=== PATIENT | male | born 1930 | race Caucasian/White ===

== ENCOUNTER 2016-10-01 20:59 | Emergency (ER) | payer MEDICARE ==
[2016-10-01 21:34] LABS: Hematocrit 39.9 % (42.0-52.0); Hemoglobin 13.5 gm/dL (13.5-18.0); Mean Cell Volume 91.7 fl (78-100); Mean Corpuscular Hgb Conc 33.8 g/dl (32-36); Mean Platelet Volume 9.5 fl (6.0-9.5); Neutrophil % 69.9 % (42-75.0); Platelet Count 485 K/mm3 (150-450); Red Blood Count 4.35 M/mm3 (4.7-6.0); Red Cell Distribution Width 13.9 % (11.5-14.0); White Blood Count 8.6 K/mm3 (4.0-10.5)
--- NOTE | 2016-10-01 21:42 | ERNOTE ---
Chest Pain/Cardiac HPI Chief Complaint: Chest Pain Time Seen by Provider: 10/01/16 21:29 Source: patient Exam Limitations: no limitations Immunizations: IMMUNIZATION HX Immunizations Up to Date Yes History of Influenza Vaccine No Hx Pneumococcal Vaccination Yes Allergies/Adverse Reactions: Allergies No Known Allergies Allergy (Verified 10/01/16 21:19) Home Medications: HOME MEDICATIONS Lisinopril [Zestril] 5 mg PO BID 06/03/16 [Last Taken Unknown] Metformin HCl [Glumetza] 500 mg PO BID 06/03/16 [Last Taken Unknown] Pravastatin Sodium [Pravachol] 20 mg PO HS 06/03/16 [Last Taken Unknown] Sucralfate [Carafate Suspension] 1 g PO AC #20 gm 10/02/16 [Last Taken Unknown] Narrative: 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 fixing 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 and began to have squeezing chest pain that has worsened Timing: constant, getting worse Severity/Quality: moderate, other - squeezing Location: central Chest Pain Radiation: no radiation Activities at Onset: none Associated Symptoms: Present: denies symptoms Review of Systems - Review of Systems Constitutional: Present: no symptoms reported EYE: Present: no symptoms reported ENT: Present: no symptoms reported Respiratory: Absent: shortness of breath Cardiology: Present: See HPI Gastrointestinal/Abdominal: Absent: nausea, vomiting, abdominal pain Genitourinary: Present: no symptoms reported Musculoskeletal: Present: back pain - lower back for the past 2-3 days but resolved as his chest pain escalated Skin: Present: no symptoms reported Neurological: Present: no symptoms reported Endocrine: Present: no symptoms reported Hematologic/Lymphatic: Present: no symptoms reported - Patient's Past Medical History Patient History - Medical: Diabetes Type 2 Patient History - Cardiac/Respiratory: No pertinent hx Patient History - Cancer: No Hx of Cancer Patient History - Surgical Procedures: Cataracts, Other Patient History - Other: None - Social History Living Situations: home Psych History: No pertinent hx Does anyone smoke in the home?: No Alcohol Use: other Drug Use: none - Immunizations Immunizations Up to Date: Yes Hx Pneumococcal Vaccination: Yes History of Influenza Vaccine: No Physical Exam - Physical Exam General Appearance: Present: wd/wn, alert, no apparent distress Eye Exam: Normal inspection: bilateral, PERRL: bilateral Ears, Nose, Throat: Present: normal ENT inspection Neck: Present: normal inspection, nontender Respiratory: Present: no respiratory distress, no accessory muscle use, chest nontender, lungs clear Cardiovascular/Chest: Present: regular rate, rhythm, systolic murmur - 4/6 harsh Gastrointestinal/Abdominal: Present: normal bowel sounds, nontender, nondistended, soft Back Exam: Present: normal inspection Extremity Exam: Present: normal inspection, normal range of motion, no edema Neurological Exam: Present: alert, oriented, normal mood/affect, no motor/ sensory deficits Skin Exam: Present: normal color, warm/dry Lymphatic Exam: Present: no adenopathy ED Progress - Results and Orders Patient's Lab Results:: I have reviewed the patient's lab results. Results and Orders: Laboratory Tests 10/01/16 10/01/16 10/01/16 21:30 21:30 21:30 WBC 8.6 Hgb 13.5 Hct 39.9 L Plt Count 485 H PT 12.2 H INR (Anticoag Therapy) 1.17 H PTT (Gulf) 28.2 Sodium 140 Potassium 3.8 Chloride 101 Carbon Dioxide 32.9 H Anion Gap 9.9 BUN 23 Creatinine 1.27 Est GFR (Non-Af Amer) 57 L BUN/Creatinine Ratio 18.1 Random Glucose 339 H Calcium 8.8 Calcium Adj for Albumin 9.0 Total Bilirubin 0.8 AST 17 ALT 26 Alkaline Phosphatase 129 Troponin I 0.081 Total Protein 7.1 Albumin 3.4 10/01/16 23:51 WBC Hgb Hct Plt Count PT INR (Anticoag Therapy) PTT (Gulf) Sodium Potassium Chloride Carbon Dioxide Anion Gap BUN Creatinine Est GFR (Non-Af Amer) BUN/Creatinine Ratio Random Glucose Calcium Calcium Adj for Albumin Total Bilirubin AST ALT Alkaline Phosphatase Troponin I 0.082 Total Protein Albumin - Vital Signs Vital Signs: Vital Signs 10/01/16 21:15 Temperature 37.1 C Pulse Rate 103 H Respiratory 16 Rate Blood Pressure 169/118 O2 Sat by Pulse 97 Oximetry - Progress/Reassessment Chief Complaint: Chest Pain Departure - Departure Clinical Impression: Esophageal spasm Disposition: Home Follow Up Needed Condition: Good Instructions: Esophageal Spasm Additional Instructions: use the carafate prior to each meal for 5-7 days then see how you feel without it. Do not take any medications within 1 hour after the carafate as they may not absorb well Referrals: Alison Mckeon MD [Primary Care Provider] - Prescriptions: Sucralfate [Carafate Suspension] 1 g PO AC #20 gm
[2016-10-01 21:46] LABS: Prothrombin Time (Patient) 12.2 Seconds (9.4-11.4)
[2016-10-01 21:47] LABS: INR 1.17 INR (0.90-1.10); Partial Thrombolplastin Time 28.2 Seconds (24-32)
[2016-10-01] MEDS: NITROGLYCERIN 0.4 MG/TAB BTL SL PRN ×2 (21:50→21:58)
[2016-10-01 21:52] LABS: Albumin * 3.4 gm/dl (3.4-5.0); Anion Gap 9.9 mmol/L (6.8-13.8); BUN/Creatinine Ratio 18.1 (9.0-21.6); Bilirubin, Total 0.8 mg/dL (0.0-1.1); Calcium * 8.8 mg/dL (7.9-10.9); Carbon Dioxide 32.9 mmol/L (24-32.6); Potassium 3.8 mmol/L (3.4-4.6); Total Protein 7.1 gm/dL (6.2-8.2); Troponin I 0.081 ng/ml (0.00-0.10)
--- OUTSIDE RECORDS SUMMARY | 2016-10-01 22:15 | XMS REPORT | Continuity of Care Document ---
:1930 Author Organization [facility] ([facility]) Address [address] [place] [address] Phone [phone] Care Team Providers Name Role Phone Alison Mckeon Primary Care Provider [phone] Source Comments This disclosure is being made pursuant to the Care Everywhere program, applicable federal and state laws, and may not contain all informaitonavailable regarding this patient.[facility] ([facility]) Active Allergies and Adverse Reactions No Known Allergies Current Medications Prescription Sig. Disp. Refills Start Date End Date Status cholecalciferol (VITAMIN Take 2,000 Units Active D3) 2,000 unit capsule by mouth daily. pravastatin (PRAVACHOL) 20 Take 20 mg by Active mg tablet mouth every evening. furosemide 20 mg tablet Take 40 mg by 07/21/2016 Active mouth daily. pantoprazole 40 mg EC 40 mg daily. 07/21/2016 Active tablet meclizine 25 mg tablet Take 25 mg by Active mouth 3 times daily as needed. spironolactone 100 mg Take 200 mg by Active tablet mouth daily. Active Problems Problem Noted Date Gastric ulcer with hemorrhage 06/07/2016 Overview: 06/05/2016 3x4 cm ulcer with visible vessel which was cauterized. The ulcer is large raising concern of having a malignant potential. (Wade classification IIA) Required 2 U PRBC at OSH> Esophageal varices determined by endoscopy 06/07/2016 Overview: 06/05/2016 EGD with Grade 3 esophageal varices. Not banded. Had coffee ground emesis prior to this admission. Acute blood loss anemia 06/06/2016 Benign hypertension 06/04/2016 Cirrhosis of liver with ascites 06/04/2016 Gastrointestinal bleed 06/04/2016 Type II or unspecified type diabetes mellitus without mention of 06/04/2016 complication, not stated as uncontrolled Systolic murmur 06/04/2016 Resolved Problems Problem Noted Date Resolved Date Gastrointestinal hemorrhage 06/06/2016 06/07/2016 Most Recent Encounters Date Type Specialty Providers Description 09/01/2016 Nurse Triage Med GI/Hepatology Vianca Do, Chief Comp: Post -op RN Follow-up Call 08/29/2016 Hospital Encounter Med GI/Hepatology [place], Dx: Cirrhosis of MD [place] liver with ascites, unspecified hepatic cirrhosis type 07/25/2016 Office Visit Med GI/Hepatology Preet Camargo MD Dx: Cirrhosis of liver with ascites, unspecified hepatic cirrhosis type Social History Tobacco Use Types Packs/Day Years Used Date Former Smoker Cigarettes 4 20 Quit: 07/13/1975 Smokeless Tobacco: Former User Comments:2 years of smoking in [place] Alcohol Use Drinks/Week oz/Week Comments No 0 Standard drinks or equivalent 0.0 Quit 1986, never heavy drinker Last Filed Vital Signs Vital Sign Reading Time Taken Blood Pressure 132/64 08/29/2016 9:56 AM 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 Pulse 71 07/25/2016 11:12 AM 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 Temperature 36.4 C (97.5 F) 08/29/2016 8:29 AM 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 Respiratory Rate 16 08/29/2016 9:56 AM 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 Height 1.6 m (5' 3") 06/06/2016 5:16 PM 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 Weight 67.45 kg (148 lb 11.2 oz) 07/25/2016 11:12 AM 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 Body Mass Index 26.35 07/25/2016 11:12 AM 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 Oxygen Saturation 100% 08/29/2016 9:56 AM 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 Plan of Care Date Type Specialty Providers Description 10/30/2016 Appointment Med GI/Hepatology Preet Camargo MD Chief Comp: Patient [address] [place] [address] Visit [phone] (Fax) 02/06/2017 Appointment Med GI/Hepatology Preet Camargo MD Chief Comp: Patient [address] [place] [address] Visit [phone] (Fax) Health Maintenance Due Date Last Done Comments Hepatitis B Vaccine (1 of 3 - Primary Series) 1930 Tdap Vaccine 1941 DIABETIC: Cholesterol 1948 Diabetic: Hdl 1948 DIABETIC: Hemoglobin A1C 1948 Diabetic: Ldl 1948 DIABETIC: Microalbumin 1948 DIABETIC: Triglycerides 1948 Td Vaccine 1948 Zoster Vaccine 1990 Pneumococcal Vaccine (1 of 2 - PCV13) 1995 Influenza Vaccine: Seasonal (#1) 02/11/2016 DIABETIC: Foot Exam 06/04/2016 DIABETIC: Retinal Eye Exam 06/04/2016 Results from Last 3 Months ENDOSCOPY UPPER (08/29/2016 9:31 AM) Bryant Yancey MD 08/29/20169:31 AM ENDOSCOPY UPPER GI/Hepatology Brief Procedure Note Date: 08/29/2016 Procedure: EGD with esophageal variceal band ligation (EVBL). Pre-procedure Diagnosis: Follow up for healing of gastric incisura ulcer.Band large esophageal varices. Proceduralist: [place]. Anesthesia: Versed 3 mg IV, fentanyl 37.5 mcg IV. The procedure sedation was given under my direction from 08/29/16 9:07 AM to 179:24 AM. Biopsy: None. Blood Loss: None. Post-procedure Diagnosis: 1.Gastric incisura ulcer nearly completely healed. 2.Grade 2-3 esophageal varices - banded (6). 3.Moderate sized gastric cardia varices, no stigmata. 4.Moderately severe portal hypertensive gastropathy. Post-procedure Plan: 1.Repeat EGD with EVBL in 4-6 weeks. 2.Continue PPI treatment. 3.Follow up in [facility] with Dr. Camargo. Bryant Onofre MD BLOOD GLUCOSE, BEDSIDE (08/29/2016 8:41 AM) Component Value Range Glucose, Accu-Chek 139(H) 65-99 mg/dL Specimen Blood, capillary PT/INR (PROTHROMBIN TIME/INR) VENOUS (07/25/2016 12:16 PM) Component Value Range PT (Prothrombin Time) 13(H) 9-12 secs INR 1.3 <4.0 Specimen Blood BASIC METABOLIC PANEL W/ CALCIUM (CHEM 8) (07/25/2016 12:16 PM) Component Value Range Sodium 145 135-145 mEq/L Potassium 3.9 3.5-5.0 mEq/L Chloride 104 95-107 mEq/L CO2 30(H) 22-29 mEq/L Anion Gap 11 8-18 mEq/L BUN 26(H) 10-20 mg/dL Creatinine 0.9Comment: 0.6-1.2 mg/dL Creatinine switched to enzymatic method on 11/19/2010.GFR equation switched to IDMS-traceable MDRD equation on 11/19/2010. Calculated GFR values are not valid in clinical settings where serum creatinine is changing. Glucose 109(H)Comment: 65-99 mg/dL The Expert Committee on the Diagnosis and Classification of Diabetes has defined impaired fasting glucose as greater than or equal to 100 mg/dL but less than 126 mg/dL.(Diabetes Care 28 (Suppl 1)S41,2005) Calcium 8.7 8.5-10.5 mg/dL Calculated GFR 80 >60 mL/min/1.73 m2 Specimen Blood ALPHA-FETOPROTEIN (07/25/2016 12:16 PM) Component Value Range AFP 2.3 0.0-9.0 ng/mL Specimen Blood HEPATIC FUNCTION PANEL (07/25/2016 12:16 PM) Component Value Range Albumin 3.2(L) 3.4-4.8 g/dL ALP 131(H) 40-129 U/L Bilirubin Total 0.5 <=1.2 mg/dL Bilirubin, Direct 0.2 0.0-0.2 mg/dL AST 24Comment: 0-40 U/L Adult reference ranges updated on 06/07/13 at 830am ALT 20Comment: 0-41 U/L The upper limit of normal for alanine aminotransferase (ALT) reference ranges for adults is controversial with some authorities recommending limit as low as 30 U/L for males and 19 U/L for females. Th ere is increased incidence of subclinical liver disease (e.g., early steatohepatitis) in patients with ALT values in the range of 31-41 U/L for males and 20-33 U/L for females. ALT values should alway s be interpreted in conjunction with clinical history, physical examination findings, and, if applicable, data from other diagnostic tests. Total Protein 6.4 6.0-8.0 g/dL Specimen Blood
[2016-10-02] MEDS ORDERED: SUCRALFATE 1 G/10 ML UDC PO ONE (00:25)
[2016-10-02 00:37] VITALS: BP 118/71
== END 2016-10-02 00:36 | disposition home or self-care (01) ==
LOC: ER 20:59
DX: K22.4 Dyskinesia of esophagus (principal)

== ENCOUNTER 2016-12-17 15:48 | Emergency (ER) | payer MEDICARE ==
[2016-12-17 16:19] LABS: Hematocrit 40.1 % (42.0-52.0); Hemoglobin 14.1 gm/dL (13.5-18.0); Mean Cell Volume 89.9 fl (78-100); Mean Corpuscular Hemoglobin 31.6 pg (27-31); Mean Corpuscular Hgb Conc 35.2 g/dl (32-36); Neutrophil # 3.6 K/mm3 (1.3-6.0); Neutrophil % 64.9 % (42-75.0); Platelet Count 503 K/mm3 (150-450); Red Blood Count 4.46 M/mm3 (4.7-6.0); Red Cell Distribution Width 12.4 % (11.5-14.0); White Blood Count 5.6 K/mm3 (4.0-10.5)
--- OUTSIDE RECORDS SUMMARY | 2016-12-17 16:26 | XMS REPORT | Continuity of Care Document ---
:1930 Author Organization [facility] ([facility]) Address [address] [place] [address] Phone [phone] Care Team Providers Name Role Phone Alison Mckeon Primary Care Provider [phone] Source Comments This disclosure is being made pursuant to the Care Everywhere program, applicable federal and state laws, and may not contain all informaitonavailable regarding this patient.[facility] ([facility]) Active Allergies and Adverse Reactions No Known [...] Recent Encounters Date Type Specialty Providers Description 12/01/2016 Orders/Notes Med GI/Hepatology Marely Barron Dx: Esophageal and Abida RN gastric varices (Primary Dx) 11/27/2016 Hospital Encounter Med GI/Hepatology Preet Camargo MD Dx: Gastric ulcer with hemorrhage, unspecified chronicity (Primary Dx) 11/27/2016 Orders Only Pathology Elvi Anne Abida Dx: Gastric ulcer with hemorrhage, unspecified chronicity 10/30/2016 Hospital Encounter Med GI/Hepatology Preet Camargo MD Chief Comp: Patient Reported Reason For Visit 10/02/2016 Telephone Med GI/Hepatology Tanja Tam RN Chief Comp: Patient Concern Social History Tobacco Use Types Packs/Day Years Used Date Former Smoker Cigarettes 4 20 Quit: 07/13/1975 Smokeless Tobacco: Former User Comments:2 years of smoking in [employer]. 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 Temperature 36.4 C (97.5 F) 11/27/2016 11:52 AM CDT Respiratory Rate 18 11/27/2016 12:10 PM CDT Height 1.6 m (5' 3") 06/06/2016 5:16 PM INFORMATION STRATEGIST Weight 67.45 kg (148 lb 11.2 oz) 07/25/2016 11:12 AM INFORMATION STRATEGIST Body Mass Index 26.35 07/25/2016 11:12 AM INFORMATION STRATEGIST Oxygen Saturation 96% 11/27/2016 12:10 PM CDT Plan of Care Date Type Specialty Providers Description 01/01/2017 Hospital Encounter Med GI/Hepatology Itzel Bermeo MD Chief Comp: Patient [address] [place] Visit [id number] [phone] (Fax) 02/06/2017 Appointment Med GI/Hepatology Preet Camargo MD Chief Comp: Patient [address] Rep[place] [id number] [phone] (Fax) Health Maintenance Due Date Last Done Comments Hepatitis B Vaccine (1 of 3 - Primary Series) 1930 Tdap Vaccine 1941 DIABETIC: Cholesterol 1948 Diabetic: Hdl 1948 DIABETIC: Hemoglobin A1C 1948 Diabetic: Ldl 1948 DIABETIC: Microalbumin 1948 DIABETIC: Triglycerides 1948 Td Vaccine 1948 Zoster Vaccine 1990 Pneumococcal Vaccine (1 of 2 - PCV13) 1995 DIABETIC: Foot Exam 06/04/2016 DIABETIC: Retinal Eye Exam 06/04/2016 Influenza Vaccine: Seasonal (Season Ended) 2017 Results from Last 3 Months ENDOSCOPY UPPER (12/12/2016 5:26 PM) Preet Reina MD 12/12/20165:26 PM ENDOSCOPY UPPER EsophagoGastroDuodenoscopy Procedure Note Procedure Date: 11/27/2016 Procedure: EGD Indications: Surveillance of esophageal varices, gastric ulcer Consent: The risks, benefits, indications, potential complications, and alternatives were explained to the patient and informed consent obtained.Opportunity for questions was provided. Attending: Rosa Camargo MD Referring: Alison Mckeon MD History of Present Illness: 86-yo man presented with GI bleed in 05/28; found to have ulcer on incisura and large, nonbleeding varices.Varices banded in 08/29.Here for F/U EGD. Current Outpatient Medications: Current Outpatient Prescriptions Medication Sig Dispense Refill cholecalciferol (VITAMIN D3) 2,000 unit capsule Take 2,000 Units by mouth daily. furosemide 20 mg tablet Take 40 mg by mouth daily. meclizine 25 mg tablet Take 25 mg by mouth 3 times daily as needed. pantoprazole 40 mg EC tablet 40 mg daily. pravastatin (PRAVACHOL) 20 mg tablet Take 20 mg by mouth every evening. spironolactone 100 mg tablet Take 200 mg by mouth daily. Current Facility-Administered Medications Medication Dose Route Frequency Provider Last Rate Last Dose fentanyl (pf) (SUBLIMAZE) 50 mcg/mL injection 12.5-50 mcg 12.5-50 mcg Intravenous PRN Ayana Red MD lidocaine 4% solution 3 mL3 mL Topical PRN Ayana Red MD midazolam (PF) (VERSED) 1 mg/mL injection 0.5-5 mg0.5-5 mg Intravenous PRN Ayana Red MD 2 mg at 11/27/16 1143 skin refrigerant (PAIN EASE) spray 1 Spray1 Ucon Topical Once Julia Robison MD skin refrigerant (PAIN EASE) spray 1 Spray1 Ucon Topical Once Ayana Red MD sodium chloride 0.9% continuous infusion Intravenous Continuous Julia Robison MD 100 mL/hr at 11/27/16 1039 450 mL at 11/27/16 1039 sodium chloride 0.9% continuous infusion Intravenous Continuous Ayana Red MD Allergies: Review of patient's allergies indicates no known allergies. Physical Exam: BP 145/62 mmHg | Temp(Src) 36.3 C (97.3 F) (Tympanic) | Resp 16 | SpO2 100% Preoperative Anesthesia Assessment: Based on the pre-procedure assessment, including review of the patient's medical history, medications, allergies, and review of systems, the patient was deemed to be an appropriate candidate for moderate sedation. Procedural Medications: topical; Versed 2 mg, Fentanyl 25 mcg IV The procedure sedation was given under my direction from 11/27/16 11:29 AM to 11/27/16 11:40 AM. Description of Procedure: The patient was placed in the left lateral decubitus position. The patient was monitored continuously with pulse oximetry, blood pressure monitoring, and direct observation.The gastroscope was inserted into the mouth and advanced under direct vision to the second part of the duodenum.A careful inspection was made as the gastroscope was withdrawn, including a retroflexed view of the proximal stomach; findings and interventions are described below.Appropriate photo documentation obtained but photos did not print.Biopsy/Specimens were collected from the incisura. The patienttolerated the procedure well and there were no complications immediately evident.Estimated blood loss was negligible. Findings: 1.Short remnant varices in the distal esophagus with non-obstructing scar from prior banding. 2.Isolated gastric varices without stigmata of impending bleeding. 3.No visible ulcer on incisura but there was an area of abnormal mucosa that was biopsied. 4.Gastric and duodenal mucosal edema. Impression: As above. Plan: 1. Await pathology 2. Will discuss possible gluing of GV with patient and his family and refer if they are in agreement 3.Otherwise will repeat EGD in 6-12 months Preet Camargo MD Anatomic Pathology Results:pending SURGICAL PATHOLOGY EXAM (11/27/2016 3:19 PM) Component Value Range Case Report Surgical Pathology Case: [id number] Authorizing Provider:Preet Camargo MDCollected: 11/27/2016 03:19 PM Ordering Location: [facility] Received: 11/28/2016 08:22 AM Diseases: Procedure Unit Pathologist: Helena Rodriguez MD Specimen:Stomach, Specify, INCISURA Diagnosis A. Stomach, incisura, biopsy: Superficial fragments of hyperplastic foveolar epithelium with reactive changes. Negative for dysplasia or malignancy. I have personally reviewed this case and edited the report as necessary. Clinical Information 86-yo man with cirrhosis and prior h/o gastric ulcer on incisure. EGD today shows healed ulcer with abnormal-appearing mucosa. R/O malignancy. Gross Description A.Received in formalin, in a container labeled Sid Armstrong, [facility] number, and "INCISURA", is a 0.3 x 0.3 x 0.2 cm thakur-pink soft tissue fragment. Submitted entirely in A1. BNS/tkr Microscopic Description Microscopic examination has been performed and supports the diagnosis. MED/SB Specimen Tissue - Stomach, Specify BLOOD GLUCOSE, BEDSIDE (11/27/2016 10:34 AM) Component Value Range Glucose, Accu-Chek 150(H) 65-99 mg/dL Specimen Blood, capillary
[2016-12-17 16:33] LABS: Urine Bilirubin Negative (NEGATIVE); Urine Blood Negative /ul (NEGATIVE); Urine Ketone Negative (NEGATIVE); Urine Nitrite Negative (NEGATIVE); Urine Protein Negative (NEGATIVE); Urine Specific Gravity <=1.005 SP.GR. (1.005-1.030); Urine Urobilinogen Normal (NORMAL); Urine pH 6.5 pH (5.0-7.0)
[2016-12-17 16:34] LABS: Albumin * 3.4 gm/dl (3.4-5.0); Anion Gap 8.5 mmol/L (6.8-13.8); BUN/Creatinine Ratio 18.1 (9.0-21.6); Bilirubin, Total 0.5 mg/dL (0.0-1.1); Ca. Corrected For Albumin 9.4 mg/dL (8.4-10.2); Calcium * 9.2 mg/dL (7.9-10.9); Carbon Dioxide 31.5 mmol/L (24-32.6); Total Protein 7.1 gm/dL (6.2-8.2)
--- NOTE | 2016-12-17 16:36 | ERNOTE ---
Medical Problem HPI - General Chief Complaint: Diabetes Related Problem Time Seen by Provider: 12/17/16 16:13 Source: patient, family Exam Limitations: no limitations - Immun/Allergies/Home Medications Immunizations: IMMUNIZATION HX Immunizations Up to Date Yes History of Influenza Vaccine No Hx Pneumococcal Vaccination No Allergies/Adverse Reactions: Allergies No Known Allergies Allergy (Verified 12/17/16 15:58) Home Medications: HOME MEDICATIONS Lisinopril [Zestril] 5 mg PO BID 06/03/16 [Last Taken Unknown] Pravastatin Sodium [Pravachol] 20 mg PO HS 06/03/16 [Last Taken Unknown] metFORMIN HCL [Glumetza] 500 mg PO BID 06/03/16 [Last Taken Unknown] Sucralfate [Carafate Suspension] 1 g PO AC #20 gm 10/02/16 [Last Taken Unknown] Spironolactone [Aldactone] 25 mg PO DAILY 12/17/16 [Last Taken Unknown] - History of Present History Narrative: Patient is here for elevated glucose. He has no symptoms and feels well. He has been checking his fasting glucose daily and they are usually in the 120- 140 range. Over the last week his fasting glucose has been over 200, 254 today. He had biscuits and gravy for breakfast and watermelon before he went to have his blood work done for his office visit with Dr Mckeon tomorrow. The office called him and told him to go to the ER as his glucose was high. Review of Systems - Review of Systems Constitutional: Absent: recent illness, fever EYE: Absent: vision changes ENT: Absent: nose congestion, sore throat Respiratory: Absent: shortness of breath, cough Cardiology: Absent: chest pain Gastrointestinal/Abdominal: Absent: nausea, vomiting, diarrhea, constipation, abdominal pain Genitourinary: Present: other - no increased output. Absent: frequency Musculoskeletal: Absent: neck pain Neurological: Absent: headache Endocrine: Absent: increased thirst - Patient's Past Medical History Patient History - Medical: Diabetes Type 2 Patient History - Cardiac/Respiratory: No pertinent hx Patient History - Cancer: No Hx of Cancer Patient History - Surgical Procedures: Cataracts, Other Patient History - Other: None - Social History Living Situations: alone Abuse History: No History of abuse Psych History: No pertinent hx Does anyone smoke in the home?: No Smoking Status: Former smoker Have you smoked in the past 12 months: No Alcohol Use: none Drug Use: none - Immunizations Immunizations Up to Date: Yes Hx Pneumococcal Vaccination: No History of Influenza Vaccine: No Physical Exam - Physical Exam General Appearance: Present: wd/wn, alert, no apparent distress, thin Ears, Nose, Throat: Present: normal pharynx. Absent: dry mucous membranes Respiratory: Present: no respiratory distress, normal breath sounds, no accessory muscle use, lungs clear Cardiovascular/Chest: Present: regular rate, rhythm, no murmur Gastrointestinal/Abdominal: Present: nontender, nondistended, soft Neurological Exam: Present: alert, oriented, normal mood/affect Skin Exam: Present: normal color, warm/dry ED Progress - Results and Orders Patient's Lab Results:: I have reviewed the patient's lab results. - Vital Signs Patient's Vital Signs:: I have reviewed the patient's vital signs. Vital Signs: Vital Signs 12/17/16 15:53 Temperature 37.0 C Pulse Rate 92 Respiratory 16 Rate Blood Pressure 137/76 O2 Sat by Pulse 98 Oximetry - Progress/Reassessment Chief Complaint: Diabetes Related Problem Progress Note-Subjective: 12/17/16 18:00 discussed labs with patient and family, as no DKA and patient is asymptomatic will give dose of insulin and have patient follow up with PCP as scheduled in two days, discussed foods to eat, try to avoid simple carbs, family will check blood sugar again in 2-3 hours Departure - Departure Clinical Impression: Hyperglycemia due to type 2 diabetes mellitus Qualifiers: Diabetes mellitus fpc insulin use: 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
[2016-12-17 16:55] LABS: Urine Appearance Clear; Urine Bacteria None Seen; Urine Color Yellow; Urine RBC None Seen /hpf (0-5); Urine WBC None Seen /hpf (0-5)
[2016-12-17] MEDS ORDERED: INSULIN LISPRO 100 UNITS/ML VIAL SC ONE (17:55)
[2016-12-17] MEDS ORDERED: INSULIN LISPRO 100 UNITS/ML VIAL ONE (17:59)
[2016-12-17 18:07] VITALS: BP 125/60
== END 2016-12-17 18:14 | disposition home or self-care (01) ==
LOC: ER 15:48
DX: E11.65 Type 2 diabetes mellitus with hyperglycemia (principal)

== ENCOUNTER 2018-08-25 12:56 | Observation (INO) ==
--- NOTE | 2018-08-25 13:12 | ERNOTE ---
Neuro HPI ER Record Date of Service: 08/25/18 Presenting Symptoms: confusion Time Seen by Provider: 08/25/18 12:57 Source: family Exam Limitations: other - confusion Immunizations: IMMUNIZATION HX Immunizations Up to Date Yes History of Influenza Vaccine Yes Hx Pneumococcal Vaccination Yes Allergies/Adverse Reactions: Allergies Allergy/AdvReac Type Severity Reaction Status Date / Time nadolol AdvReac Mild GROGGY Verified 07/19/18 09:47 Home Medications: HOME MEDICATIONS Blood-Glucose Meter [Blood Glucose Monitoring] 1 ea MC DAILY 09/08/17 [Last Taken Unknown] Cholecalciferol (Vitamin D3) [Vitamin D] 2,000 unit PO DAILY 09/08/17 [Last Taken Unknown] Pantoprazole Sodium [Protonix] 40 mg PO BID 09/08/17 [Last Taken Unknown] glipizide ER 2.5 mg tablet, extended release 24 hr 2.5 mg PO DAILY@0700 #90 tab 01/27/18 [Last Taken Unknown] blood sugar diagnostic strips See Dose Instructions .ROUTE .MEDSUPPLY #50 ea 05/12/18 [Last Taken Unknown] pravastatin 20 mg tablet 20 mg PO HS #90 tab 05/18/18 [Last Taken Unknown] furosemide 20 mg tablet 40 mg PO DAILY #180 tab 06/22/18 [Last Taken Unknown] spironolactone 100 mg tablet 200 mg PO DAILY #180 tab 06/23/18 [Last Taken Unknown] - Pain Score Pain Score #1 Pain Score: 0 - History of Present Illness Narrative: The patient is a 88 year old male who presents for altered mental status which has been present for 2 days. There are no associated symptoms. The patient denies pain. There are no alleviating factors. There are no aggravating factors. Previous treatments have included: none. The past medical history includes: DM, GI bleed, HTN, HLD, liver cirrhosis, and ascites. The social history is negative. The patient has had no known ill contacts. Patient brought to ER by family with report of increased confusion for 2 days. Patient was seen by family 2 days ago and was per his normal, spoke with daughter on phone yesterday and was confused. Daughter states that patient has had some changes to mentation over the course of few months with change in sleep cycle as well as repeating stories and difficulty with recall. Today patient is laughing and joking which family states is normal for him but appears more euphoric then his normal. Patient oriented to self but disoriented to time, place, situation and family members. Review of Systems - Narrative Narrative: ROS of symptoms obtained from patient who in current state is poor historian and family who checks on his frequently. - Review of Systems Constitutional: Present: no symptoms reported. Absent: recent illness EYE: Present: no symptoms reported ENT: Present: no symptoms reported Respiratory: Present: cough Cardiology: Present: edema Gastrointestinal/Abdominal: Present: no symptoms reported. Absent: vomiting, diarrhea Musculoskeletal: Present: no symptoms reported Neurological: Present: other - confusion All Other Systems: All systems neg except as marked Medical History (Last Reviewed 08/25/18 @ 13:21 by GILL Freeman) Liver cirrhosis (Chronic) Onset Date: Unknown Hyperlipidemia (Chronic) Onset Date: Unknown Hypertension (Chronic) Onset Date: ~10/19/14 Gastric ulcer (Chronic) Onset Date: Unknown Diabetes 1.5, managed as type 2 (Chronic) Onset Date: ~09/09/13 Ascites GI bleed Onset Date: ~05/2016 gastric ulcer S/P abdominal paracentesis Onset Date: ~06/04/16 diagnostic fluid samples pending Surgical History: Surgical History (Last Reviewed 08/25/18 @ 13:21 by GILL Freeman) Cataract Onset Date: ~07/2007 left Eye H/O echocardiogram Onset Date: ~06/18/16 Left ventricular systolic function, mild valvular aortic stenosis, mild aortic regurgitation H/O knee surgery Onset Date: Unknown Left; states cartilage repair History of esophagogastroduodenoscopy (EGD) Onset Date: ~06/05/16 08/29/16, 11/27/16; Biopsies and heat cauterization [facility] Grade III esophageal varicies, 3x4 cm ulcer with visible vessel which was cauterized, concerning for malignant potential 08/29: [facility], [facility] 11/26-shirt varicies in the distal esophagus with non-obstructing scar from prior banding, isolated gastric varicies without stigmata of impending bleeding, no visible ulcer on incisura but there was an area of abnormria mucosa that was biopsied, gastric and duodenal mucosal edema. Family History: Family History (Last Reviewed 07/19/18 @ 09:48 by Sanjay Chiu LPN) Father , age 91; unknown medical hx No problems noted. Mother , when patient was 8. unknown medical history No problems noted. Social History: Preferred Language Syriac Do you have any shinto or No cultural preference? Smoking Status Former smoker Abuse History No History of abuse Psych History No pertinent hx Alcohol Use none Drug Use none (Last Updated 07/19/18 @ 10:40 by Trini Canales MD) No Social History Section defined Physical Exam - Physical Exam General Appearance: Present: alert, no apparent distress Head Exam: Present: normal inspection, no evidence of injury Eye Exam: Normal inspection: bilateral, PERRL: bilateral, EOMI: bilateral Ears, Nose, Throat: Present: normal pharynx Neck: Present: normal inspection Respiratory: Present: no respiratory distress, normal breath sounds, no accessory muscle use, lungs clear Cardiovascular/Chest: Present: regular rate, rhythm, systolic murmur Peripheral Pulses: N=norm/S=strong/W=weak/B=bound/A=absent: Radial (R): Normal Gastrointestinal/Abdominal: Present: normal bowel sounds, nontender, soft, no organomegaly, distended - abdominal Extremity Exam: Present: extremity edema - 3+ pitting bilateral Neurological Exam: Present: alert, normal mood/affect, 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, normal cerebellar test, disoriented to time, disoriented to place, disoriented to situation Skin Exam: Present: normal color, warm/dry [place] Coma Scale - Assess Eye Opening: Spontaneous Motor: Obeys Commands Verbal: Confused - Total Coma Scale Total: 14 Initial Stroke Assessment - Date/Time of assessment Stroke Scale Date: 08/25/18 Stroke Scale Time: 12:58 - NIH Stroke Scale Level of Consciousness: Alert LOC Questions (Year and Age): Answers neither correctly LOC Commands (open/close eyes/fist): Performs both correctly Lateral Gaze Paresis: None Visual Field Loss: No visual loss - unable to assess Facial Palsy: Normal movement Right Arm Motor (10 sec hold): No drift Left Arm Motor (10 sec hold): No drift Right Leg Motor (5 sec hold): No drift Left Leg Motor (5 sec hold): No drift Limb Ataxia (finger/nose heel/hernández): Absent Sensory Loss (pinprick arms/legs/face): Mild, aware yet dulled Language Aphasia (description/naming/reading): No aphasia; normal Dysarthria (speech clarity): Normal articulation Neglect Inattention (visual/tactile/auditory/spatial/person): No neglect Initial Stroke Scale Score:: 3 Progress - Date and Time Seen: Date and Time: 08/25/18 15:28 Discussed results of testing and clinical findings with Dr. Kyle. With clinical exam does not feel that CT is warranted at this time. Will continue to monitor for further evaluation needs of brain evaluation. Discussed history of cirrhosis and possible ascites fluid due to lower extremity edema and abdominal distention. Patient will be admitted due to AMS, DM, liver cirrhosis and hyperammonemia. - Results and Orders Patient's Lab Results:: I have reviewed the patient's lab results. - Vital Signs Patient's Vital Signs:: I have reviewed the patient's vital signs. Vital Signs: Vital Signs 08/25/18 12:56 Temperature 36.4 C Pulse Rate 81 Respiratory Rate 20 Blood Pressure 152/70 H O2 Sat by Pulse Oximetry 100 - EKG EKG #1 EKG: NSR EKG read: Reviewed by me EKG Comments: 1st degree AV block. - X-Ray X-Ray #1 X-Ray: abdomen Interpretation: Reviewed by me X-ray Comments: X-RAY REPORT ~[id number] RAD/Abdomen Flat W/ Upright *~ Exam Date: 08/25/2018 13:05 Ordering Physician: Alize GARLAND HISTORY: ams, recent gi sx Additional history from technologist: AMS, CONFUSION TECHNIQUE: AP upright and supine views of the abdomen were obtained, total of 3 images. COMPARISONS: 06/03/2016 FINDINGS: Abdomen Flat W/ Upright *: No subdiaphragmatic free air. Dilated loops of small bowel suggested in the right side of the abdomen. There is some bowel gas and stool within the colonic segments as well. Upright view demonstrating differential air-fluid levels within dilated small and large bowel segments. No definite pathologic calcifications apparent. Osseous structures are intact. Degenerative changes of the spine and bilateral hips noted. IMPRESSION: Abnormal but nonspecific bowel gas pattern. Dilated loops of small bowel in the right side of the abdomen as above. Consider localized ileus due to enteritis or adjacent inflammatory process versus early/partial small bowel obstruction. Electronically signed by Vamshi Loomis M.D.. X-Ray #2 X-Ray: chest Interpretation: Reviewed by me X-ray Comments: X-RAY REPORT ~[id number] RAD/Chest PA & Lateral *~ Exam Date: 08/25/2018 13:03 Ordering Physician: Alize GARLAND HISTORY: ams. Additional history from technologist: AMS, CONFUSION TECHNIQUE: PA and lateral views of the chest were obtained. 2 images. COMPARISONS: 10/01/2016 FINDINGS: Chest PA Lateral * Hypoinflated lung volumes. No consolidation or mass. No significant vascular congestion suggested. No pneumothorax or pleural fluid collections. Cardiac silhouette within normal limits. Mild tortuosity of the thoracic aorta noted, with overlying atherosclerotic vascular calcifications. Overall stable. Trachea is in normal position. Bones show degenerative changes of the spine. IMPRESSION: 1. No focal acute cardiopulmonary finding. 2. Hypoventilatory changes. Electronically signed by Vamshi Loomis M.D.. - CT/Ultrasound CT/Ultrasound Narrative: X-RAY REPORT ~[id number] CT/CT Head W/O *~ Exam Date: 08/25/2018 13:03 Ordering Physician: Alize GARLAND HISTORY: ams x2 days Additional history from technologist: Confusion for couple of days, confusion ( does not know his name) TECHNIQUE: Multiple noncontrast axial CT images of the head were obtained. Dose reduction techniques using the adjustment of the mA and/or kV according to patient size and/or use of AEC or iterative reconstruction were used in the acquisition of this exam. COMPARISON: No prior study available. FINDINGS: CT Head W/O *: Age-related cortical atrophy and periventricular white matter chronic ischemic changes are present. Intracranial atherosclerotic calcifications noted. No acute intracranial hemorrhage. No midline shift or herniation. Series 3 image 18 and adjacent images demonstrate asymmetric low density area at the right occipital lobe, with potential loss of harris-white matter differentiation. No obvious soft tissue swelling or scalp hematoma noted. Skull grossly intact, without signs of depressed skull fracture. Visualized portions of the paranasal sinuses are clear. Mastoid air cells are grossly clear. IMPRESSION: 1. No acute intracranial hemorrhage or mass effect. 2. Artifact or potential small area of ischemia in the right occipital lobe as above. 3. Additional comments as above. Ordering provider GILL Freeman was informed regarding the above results by telephone on 08/25/2018 2:23 PM. Electronically signed by Pil Loomis, M.D.. - Progress/Reassessment Chief Complaint: Altered Mental Status Progress:: Unchanged Departure Clinical Impression: Hyperammonemia Liver cirrhosis Qualifiers: Hepatic cirrhosis type: unspecified hepatic cirrhosis Ascites presence: with ascites Qualified Code(s): K74.60 - Unspecified cirrhosis of liver; R18.8 - Other ascites Diabetes mellitus Qualifiers: Diabetes mellitus type: type 2 Diabetes mellitus senior care insulin use: without senior care use Diabetes mellitus complication status: without complication Qualified Code(s): E11.9 - Type 2 diabetes mellitus without complications Altered mental status Qualifiers: Altered mental status type: disorientation Qualified Code(s): R41.0 - Disorientation, unspecified - Departure Disposition: Still a patient Condition: Fair
[2018-08-25 13:16] LABS: Hematocrit 38.4 % (42.0-52.0); Hemoglobin 12.7 gm/dL (13.5-18.0); Mean Cell Volume 94.8 fl (78-100); Mean Corpuscular Hemoglobin 31.4 pg (27-31); Mean Corpuscular Hgb Conc 33.1 g/dl (32-36); Mean Platelet Volume 9.5 fl (8-11.3); Neutrophil % 45.9 % (42-75.0); Platelet Count 450 K/mm3 (150-450); Red Blood Count 4.05 M/mm3 (4.7-6.0); Red Cell Distribution Width 14.9 % (11.5-14.0); White Blood Count 4.4 K/mm3 (4.0-10.5)
[2018-08-25 13:26] LABS: Prothrombin Time (Patient) 13.3 Seconds (9.0-11.0)
[2018-08-25 13:27] LABS: INR 1.33 INR (0.90-1.10); Partial Thrombolplastin Time 28.7 Seconds (24-32)
[2018-08-25 13:36] LABS: Albumin * 2.8 gm/dl (3.4-5.0); Anion Gap 10.9 mmol/L (6.8-13.8); BUN/Creatinine Ratio 15.9 (9.0-21.6); Bilirubin, Total 1.3 mg/dL (0.0-1.1); CRP 0.9 mg/dL (0.0-0.9); Ca. Corrected For Albumin 9.5 mg/dL (8.4-10.2); Calcium * 8.9 mg/dL (7.9-10.9); Carbon Dioxide 28.8 mmol/L (24-32.6); Potassium 3.7 mmol/L (3.4-4.6); Total Protein 6.5 gm/dL (6.2-8.2)
[2018-08-25 14:57] LABS: Urine Bilirubin Negative (NEGATIVE); Urine Blood Negative /ul (NEGATIVE); Urine Ketone Negative (NEGATIVE); Urine Nitrite Negative (NEGATIVE); Urine Protein Negative (NEGATIVE); Urine pH 6.5 pH (5.0-7.0)
[2018-08-25 15:07] LABS: Urine Appearance Clear (CLEAR); Urine Bacteria 1+; Urine Color Yellow; Urine Mucus TRACE; Urine RBC None Seen /hpf (0-5); Urine WBC None Seen /hpf (0-5)
--- NOTE | 2018-08-25 16:08 | HP ---
Chief Complaint - Chief Complaint Date of Service: 08/25/18 Time of Service: 16:08 Chief Complaint: confusion History of Present Illness: Patient with past medical history of hepatic cirrhosis, diabetes, hypertension, hyperlipidemia was brought to the ER after family members noticed he had not been acting right lately. History provided largely by family members. He lives alone, but family members frequently check in on him. He is normally very active, but the weather has kept him inside the last couple of weeks. They do not feel like he has had any signs of infection. They do feel like his abdomen is more distended today. They are unsure of his recent bowel or bladder habits. They feel like he might have missed some of the doses of his medications. His Lasix dose was adjusted back in July for increased lower extremity edema. Denies alcohol history. In the ER, he was found to have an elevated ammonia level of 69 albumin is also low at 2.8. He has an INR of 1.33, and is not anticoagulated. He was unable to state his location, and could not state his year. His mentation had improved by my exam, and he was alert and oriented to self, location, and season. Medical History (Last Reviewed 08/25/18 @ 16:22 by Ayana Mathias RN) Liver cirrhosis (Chronic) Onset Date: Unknown Hyperlipidemia (Chronic) Onset Date: Unknown Hypertension (Chronic) Onset Date: ~10/19/14 Gastric ulcer (Chronic) Onset Date: Unknown Diabetes 1.5, managed as type 2 (Chronic) Onset Date: ~09/09/13 Ascites GI bleed Onset Date: ~05/2016 gastric ulcer S/P abdominal paracentesis Onset Date: ~06/04/16 diagnostic fluid samples pending Surgical History: Surgical History (Last Reviewed 08/25/18 @ 16:23 by Ayana Mathias RN) Cataract Onset Date: ~07/2007 left Eye H/O echocardiogram Onset Date: ~06/18/16 Left ventricular systolic function, mild valvular aortic stenosis, mild aortic regurgitation H/O knee surgery Onset Date: Unknown Left; states cartilage repair History of esophagogastroduodenoscopy (EGD) Onset Date: ~06/05/16 08/29/16, 11/27/16; Biopsies and heat cauterization [facility] Grade III esophageal varicies, 3x4 cm ulcer with visible vessel which was cauterized, concerning for malignant potential 08/29: [facility], [facility] 11/26-shirt varicies in the distal esophagus with non-obstructing scar from prior banding, isolated gastric varicies without stigmata of impending bleeding, no visible ulcer on incisura but there was an area of abnormria mucosa that was biopsied, gastric and duodenal mucosal edema. Family History: Family History (Last Updated 08/25/18 @ 18:00 by Kalyani Kyle DO) Father , age 91; unknown medical hx No problems noted. Mother , when patient was 8. unknown medical history No problems noted. Other Unknown family medical history Social History: Preferred Language Kazakh Do you have any oriental orthodox or No cultural preference? Smoking Status Former smoker Abuse History No History of abuse Psych History No pertinent hx Alcohol Use none Drug Use none (Last Updated 07/19/18 @ 10:40 by Trini Canales MD) No Social History Section defined Immunizations: IMMUNIZATION HX Immunizations Up to Date Yes History of Influenza Vaccine Yes Hx Pneumococcal Vaccination Yes Allergies/Adverse Reactions: Allergies Allergy/AdvReac Type Severity Reaction Status Date / Time nadolol AdvReac Mild GROGGY Verified 07/19/18 09:47 Home Medications: HOME MEDICATIONS Blood-Glucose Meter [Blood Glucose Monitoring] 1 ea MC DAILY 09/08/17 [Last Taken Unknown] Cholecalciferol (Vitamin D3) [Vitamin D] 2,000 unit PO DAILY 09/08/17 [Last Taken Unknown] Pantoprazole Sodium [Protonix] 40 mg PO BID 09/08/17 [Last Taken Unknown] glipizide ER 2.5 mg tablet, extended release 24 hr 2.5 mg PO DAILY@0700 #90 tab 01/27/18 [Last Taken Unknown] blood sugar diagnostic strips See Dose Instructions .ROUTE .MEDSUPPLY #50 ea 05/12/18 [Last Taken Unknown] pravastatin 20 mg tablet 20 mg PO HS #90 tab 05/18/18 [Last Taken Unknown] furosemide 20 mg tablet 40 mg PO DAILY #180 tab 06/22/18 [Last Taken Unknown] spironolactone 100 mg tablet 200 mg PO DAILY #180 tab 06/23/18 [Last Taken Unknown] Exam - Exam Vital Signs: Vital Signs - Last Taken Temp 36.4 C 08/25/18 12:56 Pulse 80 08/25/18 14:49 Resp 15 08/25/18 14:49 BP 151/67 H 08/25/18 14:49 Pulse Ox 100 08/25/18 14:49 Diagnostic Studies: Abnormal Lab Results 08/25/18 08/25/18 08/25/18 Range/Units 13:10 13:10 13:10 RBC 4.05 L (4.7-6.0) M/mm3 Hgb 12.7 L (13.5-18.0) gm/dL Hct 38.4 L (42.0-52.0) % MCH 31.4 H (27-31) pg RDW 14.9 H (11.5-14.0) % Immature Gran % (Auto) 0.70 H (0.001-0.429) % Monocytes % 17.7 H (0.0-9) % Eosinophils % 3.2 H (0.0-3.0) % Lymphocytes # 1.42 L (1.5-3.5) k/mm3 PT (9.0-11.0) Seconds INR (Anticoag Therapy) (0.90-1.10) INR Sodium 145 H (132-142) mmol/L Plasma Sodium 146 H (130-142) mmol/L Chloride 109 H (97-106) mmol/L Random Glucose 154 H (70-110) mg/dL Lactic Acid, Venous 2.2 H* (0.4-2.0) mmol/L Total Bilirubin 1.3 H (0.0-1.1) mg/dL Ammonia (11-35) mcmol/L Albumin 2.8 L (3.4-5.0) gm/dl Lipase 67 L (73-393) U/L Urine Urobilinogen (NORMAL) EU/dl Urine Bacteria (NONE) 08/25/18 08/25/18 08/25/18 Range/Units 13:10 13:10 14:53 RBC (4.7-6.0) M/mm3 Hgb (13.5-18.0) gm/dL Hct (42.0-52.0) % MCH (27-31) pg RDW (11.5-14.0) % Immature Gran % (Auto) (0.001-0.429) % Monocytes % (0.0-9) % Eosinophils % (0.0-3.0) % Lymphocytes # (1.5-3.5) k/mm3 PT 13.3 H (9.0-11.0) Seconds INR (Anticoag Therapy) 1.33 H (0.90-1.10) INR Sodium (132-142) mmol/L Plasma Sodium (130-142) mmol/L Chloride (97-106) mmol/L Random Glucose (70-110) mg/dL Lactic Acid, Venous (0.4-2.0) mmol/L Total Bilirubin (0.0-1.1) mg/dL Ammonia 69.0 H (11-35) mcmol/L Albumin (3.4-5.0) gm/dl Lipase (73-393) U/L Urine Urobilinogen 2.0 H (NORMAL) EU/dl Urine Bacteria 1+ H (NONE) Laboratory Results WBC 4.4 K/mm3 (4.0-10.5) 08/25/18 13:10 RBC 4.05 M/mm3 (4.7-6.0) L 08/25/18 13:10 Hgb 12.7 gm/dL (13.5-18.0) L 08/25/18 13:10 Hct 38.4 % (42.0-52.0) L 08/25/18 13:10 MCV 94.8 fl (78-100) 08/25/18 13:10 MCH 31.4 pg (27-31) H 08/25/18 13:10 MCHC 33.1 g/dl (32-36) 08/25/18 13:10 RDW 14.9 % (11.5-14.0) H 08/25/18 13:10 Plt Count 450 K/mm3 (150-450) 08/25/18 13:10 MPV 9.5 fl (8-11.3) 08/25/18 13:10 Immature Gran % (Auto) 0.70 % (0.001-0.429) H 08/25/18 13:10 Immature Gran # (Auto) 0.03 K/mm3 (0.000-0.0310) 08/25/18 13:10 Neutrophils % 45.9 % (42-75.0) 08/25/18 13:10 Lymphocytes % 32.3 % (20-51) 08/25/18 13:10 Monocytes % 17.7 % (0.0-9) H 08/25/18 13:10 Eosinophils % 3.2 % (0.0-3.0) H 08/25/18 13:10 Basophils % 0.2 % (0.0-1.0) 08/25/18 13:10 Nucleated RBC % 0.0 k/mm3 (0-1) 08/25/18 13:10 Neutrophils # 2.0 K/mm3 (1.3-6.0) 08/25/18 13:10 Lymphocytes # 1.42 k/mm3 (1.5-3.5) L 08/25/18 13:10 Monocytes # 0.8 k/mm3 (0.0-1.0) 08/25/18 13:10 Eosinophils # 0.1 k/mm3 (0.0-0.7) 08/25/18 13:10 Absolute Basophils 0.0 k/mm3 (0.0-0.1) 08/25/18 13:10 PT 13.3 Seconds (9.0-11.0) H 08/25/18 13:10 INR (Anticoag Therapy) 1.33 INR (0.90-1.10) H 08/25/18 13:10 PTT (Vania) 28.7 Seconds (24-32) 08/25/18 13:10 Sodium 145 mmol/L (132-142) H 08/25/18 13:10 Plasma Sodium 146 mmol/L (130-142) H 08/25/18 13:10 Potassium 3.7 mmol/L (3.4-4.6) 08/25/18 13:10 Chloride 109 mmol/L (97-106) H 08/25/18 13:10 Carbon Dioxide 28.8 mmol/L (24-32.6) 08/25/18 13:10 Anion Gap 10.9 mmol/L (6.8-13.8) 08/25/18 13:10 BUN 18 mg/dL (6-23) 08/25/18 13:10 Creatinine 1.13 mg/dL (0.4-1.4) 08/25/18 13:10 Est GFR (Non-Af Amer) 65 mL/min (60-130) 08/25/18 13:10 BUN/Creatinine Ratio 15.9 (9.0-21.6) 08/25/18 13:10 Random Glucose 154 mg/dL (70-110) H 08/25/18 13:10 Lactic Acid, Venous 2.2 mmol/L (0.4-2.0) H* 08/25/18 13:10 Calcium 8.9 mg/dL (7.9-10.9) 08/25/18 13:10 Calcium Adj for Albumin 9.5 mg/dL (8.4-10.2) 08/25/18 13:10 Total Bilirubin 1.3 mg/dL (0.0-1.1) H 08/25/18 13:10 AST 25 U/L (0-48) 08/25/18 13:10 ALT 21 U/L (19-67) 08/25/18 13:10 Alkaline Phosphatase 147 U/L (50-170) 08/25/18 13:10 Ammonia 69.0 mcmol/L (11-35) H 08/25/18 13:10 C-Reactive Prot, Quant 0.9 mg/dL (0.0-0.9) 08/25/18 13:10 B-Natriuretic Peptide 215 pg/mL (5-650) 08/25/18 13:10 Total Protein 6.5 gm/dL (6.2-8.2) 08/25/18 13:10 Albumin 2.8 gm/dl (3.4-5.0) L 08/25/18 13:10 Amylase 53 U/L (25-115) 08/25/18 13:10 Lipase 67 U/L (73-393) L 08/25/18 13:10 Urine Color Yellow 08/25/18 14:53 Urine Appearance Clear (CLEAR) 08/25/18 14:53 Urine pH 6.5 pH (5.0-7.0) 08/25/18 14:53 Ur Specific Prentice 1.020 SP.GR. (1.005-1.030) 08/25/18 14:53 Urine Protein Negative mg/dL (NEGATIVE) 08/25/18 14:53 Urine Glucose (UA) Negative mg/dL (NEGATIVE) 08/25/18 14:53 Urine Ketones Negative mg/dL (NEGATIVE) 08/25/18 14:53 Urine Blood Negative /ul (NEGATIVE) 08/25/18 14:53 Urine Nitrate Negative (NEGATIVE) 08/25/18 14:53 Urine Bilirubin Negative mg/dl (NEGATIVE) 08/25/18 14:53 Urine Urobilinogen 2.0 EU/dl (NORMAL) H 08/25/18 14:53 Ur Leukocyte Esterase Negative /ul (NEGATIVE) 08/25/18 14:53 Urine RBC None seen /hpf (0-5) 08/25/18 14:53 Urine WBC None seen /hpf (0-5) 08/25/18 14:53 Ur Epithelial Cells 0-5 /hpf (0-5) 08/25/18 14:53 Urine Bacteria 1+ (NONE) H 08/25/18 14:53 Urine Mucus Trace (NONE) 08/25/18 14:53 Urine Culture Comments No culture indicated 08/25/18 14:53 Assessment/Plan - Assessment/Plan (1) Altered mental status Assessment: Ddx includes hyperammonemia, medication side effect, hypoglycemia, electrolyte abnormality, infection, dehydration, TIA. He does have a history of cirrhosis, and with his ammonia level of 69, will start lactulose, with the goal of 3-4 BMs per day. No new medications otherwise, and he does not drink alcohol. No significant abnormalities on his electrolytes. No signs or symptoms of infection. Mild dehydration on physical exam. He does have some lower extremity swelling, and is able to swallow, so will rehydrate orally and avoid IV fluids. CT reads "Artifact or potential small area of ischemia in the right occipital lobe." If his mentation were to worsen, will obtain MRI of the brain. Problem: Acute Qualifiers: Altered mental status type: disorientation Qualified Code(s): R41.0 - Disorientation, unspecified (2) Liver cirrhosis Assessment: US of his abdomen pending for the am to assess the extent of his cirrhosis, and for ascites. Continue home lasix and spironolactone. His daughter reports no significant alcohol use. 20 mg IV lasix given for his lower extremity swelling. Problem: Chronic Qualifiers: Hepatic cirrhosis type: unspecified hepatic cirrhosis Ascites presence: with ascites Qualified Code(s): K74.60 - Unspecified cirrhosis of liver; R18.8 - Other ascites (3) Diabetes Assessment: Glucose of 154. Will continue home glipizide. Problem: Chronic Qualifiers: Diabetes mellitus type: type 2 Diabetes mellitus assisted insulin use: without rn long term care use Diabetes mellitus complication status: without complication Qualified Code(s): E11.9 - Type 2 diabetes mellitus without complications (4) HTN (hypertension) Assessment: is somewhat high. continue home spironolactone, and will continue to monitor. Problem: Chronic Qualifiers: Hypertension type: essential hypertension Qualified Code(s): I10 - Essential (primary) hypertension
[2018-08-25] MEDS ORDERED: FUROSEMIDE 10 MG/ML VIAL IV ONE (16:30)
[2018-08-25] MEDS: PANTOPRAZOLE SODIUM 40 MG TABLET.EC PO SCH (20:41)
[2018-08-25] MEDS: LACTULOSE 10 G/15 ML BTL PO SCH (20:41)
[2018-08-25] MEDS ORDERED: SIMVASTATIN 10 MG TABLET PO SCH (21:00)
[2018-08-26] MEDS ORDERED: glipiZIDE 2.5 MG TAB.SR.24H PO SCH (07:00)
[2018-08-26] MEDS: PANTOPRAZOLE SODIUM 40 MG TABLET.EC PO SCH (07:05)
[2018-08-26] MEDS ORDERED: SPIRONOLACTONE 100 MG TABLET PO SCH (09:00)
[2018-08-26] MEDS ORDERED: FUROSEMIDE 40 MG TABLET PO SCH (09:00)
[2018-08-26] MEDS: LACTULOSE 10 G/15 ML BTL PO SCH (09:18)
--- NOTE | 2018-08-26 13:27 | PATH ---
PHYSICIAN: Kalyani Kyle MD / Edson Browne MD radiologist LAB#: [id number] SPECIMEN DATE: 08/26/2018 SPECIMEN: Ascites fluid CLINICAL INFORMATION: The patient is an 88-year-old man with a history of hepatic cirrhosis, type II diabetes, hypertension, hyperlipidemia, is admitted through the ER to [facility] when the family noticed that he is not acting correctly lately. Elevated ammonia and ascites fluid is present. Patient underwent paracentesis under ultrasound guidance by radiologist. Ascites protein 0.9/Serum protein 6.5 g/dL=.13 consistent with transudate; serum albumin 2.8 g/dL-ascites albumin 0.4 = 2.2 g/dl elevated albumin gradient. GROSS DESCRIPTION: The specimen is received fresh in pathology in 3 L aspiration containers appropriately designated, "ascites fluid". The specimen consists of 3 L of thakur yellow foamy fluid. Specimen is processed with cytospin fixative for cytospin Pap stain slides preparation. DIAGNOSIS: PERITONEAL CAVITY, ASCITES FLUID, PARACENTESIS: -BENIGN REACTIVE CHANGES IN AN HIGH CELLULARITY TRANSUDATE COMMENT: Cytospin's show scant proteinaceous debris, rare lymphocytes, many mesothelial cells, many histiocytes, few PMNs and many RBCs. On the basis of protein and albumin studies studies of ascites fluid and serum, the findings are a transudate with an elevated albumin gradient consistent with causal etiology of liver cirrhosis due to unspecified etiology. Case findings are faxed to Dr. Kyle on 08/27/2018.
[2018-08-26 13:29] LABS: Body Fluid WBC 245 /uL (0-1000)
[2018-08-26 13:52] LABS: Body Fluid Appearance CLEAR (CLEAR); Body Fluid Color YELLOW (COLORLESS)
--- NOTE | 2018-08-26 14:43 | DS ---
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 History provided largely by family members. He lives alone, but family members frequently check in on him. He is normally very active, but the weather has kept him inside the last couple of weeks. They do not feel like he has had any signs of infection. They do feel like his abdomen is more distended. They are unsure of his recent bowel or bladder habits. They feel like he might have missed some of the doses of his medications. His Lasix dose was adjusted back in July for increased lower extremity edema. Denies alcohol history. In the ER, he was found to have an elevated ammonia level of 69 albumin is also low at 2.8. He has an INR of 1.33, and is not anticoagulated. He was unable to state his location, and could not state his year. His mentation had improved by my exam, and he was alert and oriented to self, location, and season. The day following admission, his mentation was back to baseline, and he felt comfortable going home. A paracentesis was done, fluid analysis pending. He and his family would like to receive home health benefits. He will be homebound due to frailty and deconditioning secondary to his liver cirrhosis. He will need longterm to help with medication management. Physical therapy will also help maintain strength and prevent falls. The need for home health care skilled services is directly related to the time spent [id number] with Mr. Armstrong. Procedures Performed: see notes below - paracentesis Results and Findings: Lab Pending Results 08/25/18 13:10: WBC 4.4, RBC 4.05 L, Hgb 12.7 L, Hct 38.4 L, MCV 94.8, MCH 31.4 H, MCHC 33.1, RDW 14.9 H, Plt Count 450, MPV 9.5, Immature Gran % (Auto) 0.70 H, Immature Gran # (Auto) 0.03, Neutrophils % 45.9, Lymphocytes % 32.3, Monocytes % 17.7 H, Eosinophils % 3.2 H, Basophils % 0.2, Nucleated RBC % 0.0, Neutrophils # 2.0, Lymphocytes # 1.42 L, Monocytes # 0.8, Eosinophils # 0.1, Absolute Basophils 0.0 08/25/18 13:10: Sodium 145 H, Plasma Sodium 146 H, Potassium 3.7, Chloride 109 H, Carbon Dioxide 28.8, Anion Gap 10.9, BUN 18, Creatinine 1.13, Est GFR (Non-Af Amer) 65, BUN/Creatinine Ratio 15.9, Random Glucose 154 H, Calcium 8.9, Calcium Adj for Albumin 9.5, Total Bilirubin 1.3 H, AST 25, ALT 21, Alkaline Phosphatase 147, C-Reactive Prot, Quant 0.9, B-Natriuretic Peptide 215, Total Protein 6.5, Albumin 2.8 L, Amylase 53, Lipase 67 L 08/25/18 13:10: Lactic Acid, Venous 2.2 H* 08/25/18 13:10: Ammonia 69.0 H 08/25/18 13:10: PT 13.3 H, INR (Anticoag Therapy) 1.33 H, PTT ([place]) 28.7 08/25/18 14:53: Urine Color Yellow, Urine Appearance Clear, Urine pH 6.5, Ur Specific [place] 1.020, Urine Protein Negative, Urine Glucose (UA) Negative, Urine Ketones Negative, Urine Blood Negative, Urine Nitrate Negative, Urine Bilirubin Negative, Urine Urobilinogen 2.0 H, Ur Leukocyte Esterase Negative, Urine RBC None seen, Urine WBC None seen, Ur Epithelial Cells 0-5, Urine Bacteria 1+ H, Urine Mucus Trace, Urine Culture Comments No culture indicated 08/25/18 16:05: Lactic Acid, Venous 1.7 08/26/18 09:34: Fluid Color Yellow, Fluid Appearance Clear, Fluid WBC 245, Fluid RBC Greater than 1000.0 H, Fluid Neutrophils 9, Fluid Lymphocytes 91 08/26/18 12:30: Peritoneal Tot Protein 0.9, Peritoneal Albumin 0.4, Peritoneal LDH Pending, Peritoneal Glucose 133, Peritoneal Amylase 4, Peritoneal Cholesterol 12, Peritoneal Triglycerid 23 Discharge Location: Home Disposition: Home Health Service Home Health Agency: [facility] Condition: Fair Face to Face Encounter completed per [facility] Guidelines: Yes Discharge Activity: Activity as tolerated Discharge Diet: Resume usual diet - increase protein Referrals: Kalyani Kyle DO [Primary Care Provider] - Problem Oriented Discharge Instructions to Patient/Family: Cirrhosis, Ascites Additional Patient Instructions (free text): -Please make TCM appointment unless longterm discharge. Thank you! Erin @ [phone].Follow up with Dr. Kyle on 09-09-18 at 1:00pm. Please call and fax discharge order to [facility], new patient referral. Prescriptions (Any new or edited meds): Lactulose [Enulose] 30 g PO BID #1 btl Complete Home Medications List: Complete Home Medication List: Blood-Glucose Meter [Blood Glucose Monitoring] 1 ea MC DAILY 09/08/17 Cholecalciferol (Vitamin D3) [Vitamin D3] 2,000 unit PO DAILY 09/08/17 Pantoprazole Sodium [Protonix] 40 mg PO BID 09/08/17 glipizide ER 2.5 mg tablet, extended release 24 hr 2.5 mg PO DAILY@0700 #90 tab 01/27/18 blood sugar diagnostic strips See Dose Instructions .ROUTE .MEDSUPPLY #50 ea 05/12/18 pravastatin 20 mg tablet 20 mg PO HS #90 tab 05/18/18 furosemide 20 mg tablet 40 mg PO DAILY #180 tab 06/22/18 spironolactone 100 mg tablet 200 mg PO DAILY #180 tab 06/23/18 Lactulose [Enulose] 30 g PO BID #1 btl 08/26/18
[2018-08-26 15:08] VITALS: BP 118/42
== END 2018-08-26 15:55 | disposition home health service (06) ==
LOC: MS 12:56 → ER 12:56 → MS 15:18
PROVIDERS: ADMIT Family Medicine; ATTEND Family Medicine
DX: R41.82 Altered mental status, unspecified; E72.20 Disorder of urea cycle metabolism, unspecified; R18.8 Other ascites; K74.60 Unspecified cirrhosis of liver; E11.9 Type 2 diabetes mellitus without complications; I10 Essential (primary) hypertension
CPT/HCPCS: 36415; 49083; 70450; 71020; 71046; 74019; 74020; 76705; 80053; 81001; 82042; 82140; 82150; 82945; 82947; 83519; 83605; 83615; 83690; 83880; 84155; 84157; 85025; 85610; 85730; 86140; 87070; 87205; 88108; 89051; 93005; 96374; 99285; G0378